=== PATIENT | female | born 1945 | race Caucasian/White ===

== ENCOUNTER 2017-02-14 05:07 | Emergency (ER) | payer MEDICARE ==
[~2017-02-14] VITALS: Ht 157.5 cm; Wt 73.0 kg
[~2017-02-14 05:07] MED LIST: ATOR20TA; DIAZ-56; GABA-529; GLIP10TA10; LAM2; METF500T3; RISP0.5T
[2017-02-14] MEDS ORDERED: SODIUM CHLORIDE 0.9% 250 ML IV ONE (06:11)
[2017-02-14 06:15] VITALS: BP 137/72
[2017-02-14 06:49] LABS: CHLORIDE 106 mEq/L (98-107); INDEX HEMOLYSI 1 (1-3); INDEX ICTERIC 1 (1-4); INDEX LIPEMIC 1 (1-3)
[2017-02-14 06:52] LABS: PROTHROMBIN TIME 10.5 sec
[2017-02-14 06:53] LABS: ANION GAP 10; BASOPHILS % 0.6 % (0.0-2.0); CALCIUM 8.6 mg/dL (8.5-10.1); CARBON DIOXIDE 29 mEq/L (21-32); EOSINOPHILS % 0.6 % (0.0-5.0); HEMATOCRIT. 40.1 % (36.0-48.0); HEMOGLOBIN. 13.2 g/dL (12.0-16.0); LYMPHOCYTES % 12.4 % (20.0-50.0); MEAN CORPUSCULAR HEMOGLOBIN 30.8 pg (28.0-32.0); MEAN CORPUSCULAR HGB CONC 32.8 g/dL (31.0-37.0); MEAN PLATELET VOLUME 7.9 fl (7.4-10.4); MONOCYTES % 5.3 % (2.0-8.0); NEUTROPHILS % 81.1 % (40.0-76.0); PLATELET 365 x1000/uL (130-400); RED BLOOD CELL COUNT 4.27 mill/uL (4.2-5.4); RED CELL DISTRIBUTION WIDTH 14.2 % (11.6-14.6); UREA NITROGEN BLOOD 14 mg/dL (7-21); WHITE BLOOD COUNT 15.7 x1000/uL (4.5-11.0)
[2017-02-14 06:55] LABS: eGFR > 60 mL/min (>60)
== END 2017-02-14 07:15 | disposition home or self-care (01) ==
LOC: ER 05:28
DX: R04.0 Epistaxis (principal); I10 Essential (primary) hypertension; E11.9 Type 2 diabetes mellitus without complications; F17.210 Nicotine dependence, cigarettes, uncomplicated; Z88.8 Allergy status to other drugs, medicaments and biological substances; Z79.899 Other long term (current) drug therapy
CPT/HCPCS: 36415; 80048; 85025; 85610; 85730; 86850; 86900; 99284; J7050

== ENCOUNTER 2017-04-07 14:23 | Emergency (ER) | payer MEDICARE ==
[~2017-04-07] VITALS: Ht 160 cm; Wt 73.0 kg
[2017-04-07] MEDS ORDERED: KETOROLAC 15MG/ML VIAL IV ONE (16:15)
[2017-04-07 18:56] VITALS: BP 138/63
== END 2017-04-07 18:58 | disposition home or self-care (01) ==
LOC: ER 17:02
DX: S29.011A Strain of muscle and tendon of front wall of thorax, initial encounter (principal); Y93.89 Activity, other specified; Y92.098 Other place in other non-institutional residence as the place of occurrence of the external cause; W01.0XXA Fall on same level from slipping, tripping and stumbling without subsequent striking against object, initial encounter; I10 Essential (primary) hypertension; J98.11 Atelectasis; R07.81 Pleurodynia; I51.7 Cardiomegaly; J44.9 Chronic obstructive pulmonary disease, unspecified; E78.00 Pure hypercholesterolemia, unspecified; F17.210 Nicotine dependence, cigarettes, uncomplicated; Z98.890 Other specified postprocedural states; Z71.6 Tobacco abuse counseling
CPT/HCPCS: 71010; 96374; 99284; J1885

== ENCOUNTER 2017-05-29 07:23 | Emergency (ER) | payer MEDICARE, MEDICAID ==
[~2017-05-29] VITALS: Ht 160 cm; Wt 70.0 kg
[~2017-05-29 07:23] MED LIST changes: -DIAZ-56; +DIAZ5TAB; -RISP0.5T; +RISP05
[2017-05-29] MEDS ORDERED: SODIUM CHLORIDE 0.9% 1,000 ML IV ONE (07:56)
[2017-05-29 08:11] LABS: BASOPHILS % 0.5 % (0.0-2.0); EOSINOPHILS % 0.6 % (0.0-5.0); HEMATOCRIT. 48.8 % (36.0-48.0); HEMOGLOBIN. 16.5 g/dL (12.0-16.0); LYMPHOCYTES % 16.5 % (20.0-50.0); MEAN CORPUSCULAR HEMOGLOBIN 31.6 pg (28.0-32.0); MEAN CORPUSCULAR VOLUME 93.3 fL (81.0-99.0); MEAN PLATELET VOLUME 7.9 fl (7.4-10.4); MONOCYTES % 4.4 % (2.0-8.0); PLATELET 283 x1000/uL (130-400); RED BLOOD CELL COUNT 5.23 mill/uL (4.2-5.4); RED CELL DISTRIBUTION WIDTH 13.9 % (11.6-14.6)
[2017-05-29 08:23] LABS: CARBON DIOXIDE 26 mEq/L (21-32); CHLORIDE 106 mEq/L (98-107)
[2017-05-29 08:26] LABS: BETA HYDROXYBUTYRATE 0.1 mMol/L (0.0-0.3)
[2017-05-29 09:25] VITALS: BP 127/83
== END 2017-05-29 09:30 | disposition home or self-care (01) ==
LOC: ER 07:48
DX: R53.1 Weakness (principal); M79.1 Myalgia; I10 Essential (primary) hypertension; E78.00 Pure hypercholesterolemia, unspecified; F32.9 Major depressive disorder, single episode, unspecified; E11.65 Type 2 diabetes mellitus with hyperglycemia; R56.9 Unspecified convulsions; F17.200 Nicotine dependence, unspecified, uncomplicated; Z88.0 Allergy status to penicillin
CPT/HCPCS: 36415; 80053; 82010; 82962; 85025; 93005; 96360; 99285; J7030

== ENCOUNTER 2017-06-22 09:55 | Emergency (ER) | payer MEDICARE ==
[~2017-06-22] VITALS: Ht 160 cm; Wt 75.0 kg
[~2017-06-22 09:55] MED LIST changes: +DIAZ-56; -DIAZ5TAB; +RISP0.5T; -RISP05
[2017-06-22 09:58] VITALS: BP_DIAS 95
[2017-06-22 12:37] VITALS: BP_SYST 119
== END 2017-06-22 13:14 | disposition left against medical advice (07) ==
LOC: ER 11:01
DX: F41.9 Anxiety disorder, unspecified (principal); Z53.21 Procedure and treatment not carried out due to patient leaving prior to being seen by health care provider
CPT/HCPCS: 82962; 99284

== ENCOUNTER 2018-01-26 12:02 | Emergency (ER) | payer MEDICARE ==
[~2018-01-26] VITALS: Ht 160 cm; Wt 61.0 kg
[~2018-01-26 12:02] MED LIST changes: -DIAZ-56; +DIAZ5TAB; -RISP0.5T; +RISP05
[2018-01-26 12:52] VITALS: BP 170/87
== END 2018-01-26 13:41 | disposition home or self-care (01) ==
LOC: ER 12:59
DX: Z76.0 Encounter for issue of repeat prescription (principal); F41.9 Anxiety disorder, unspecified; F32.9 Major depressive disorder, single episode, unspecified; E11.9 Type 2 diabetes mellitus without complications; I10 Essential (primary) hypertension; E78.00 Pure hypercholesterolemia, unspecified; Z79.84 Long term (current) use of oral hypoglycemic drugs; Z91.018 Allergy to other foods; Z88.0 Allergy status to penicillin; F17.200 Nicotine dependence, unspecified, uncomplicated
CPT/HCPCS: 99283

== ENCOUNTER 2018-01-30 05:00 | Inpatient (IN) | payer MEDICARE ==
[~2018-01-30] VITALS: Ht 162.6 cm; Wt 59.0 kg
[2018-01-30] MEDS ORDERED: LORAZEPAM 2MG/ML CPJ IV ONE (06:00)
[2018-01-30 06:46] LABS: BASOPHILS % 0.2 % (0.0-2.0); EOSINOPHILS % 0.4 % (0.0-5.0); HEMATOCRIT. 43.5 % (36.0-48.0); HEMOGLOBIN. 14.1 g/dL (12.0-16.0); LYMPHOCYTES % 8.2 % (20.0-50.0); MEAN CORPUSCULAR HEMOGLOBIN 31.3 pg (28.0-32.0); MEAN CORPUSCULAR VOLUME 96.2 fL (81.0-99.0); MEAN PLATELET VOLUME 7.9 fl (7.4-10.4); MONOCYTES % 4.5 % (2.0-8.0); NEUTROPHILS % 86.7 % (40.0-76.0); PLATELET 371 x1000/uL (130-400); RED BLOOD CELL COUNT 4.51 mill/uL (4.2-5.4); RED CELL DISTRIBUTION WIDTH 15.5 % (11.6-14.6)
[2018-01-30 06:49] LABS: CHLORIDE 99 mEq/L (98-107); ETHANOL BLOOD < 10 mg/dL
[2018-01-30] MEDS ORDERED: SODIUM CHLORIDE 0.9% 1,000 ML IV ONE (06:49)
[2018-01-30] MEDS: SODIUM CHLORIDE 0.9% 1,000 ML IV SCH ×2 (07:00→12:02)
[2018-01-30 07:18] LABS: CARBAMAZEPINE < 0.5 ug/mL (4-12); PHENOBARBITAL < 2.1 ug/mL (15.0-40.0)
[2018-01-30 07:48] LABS: CLARITY URINE CLEAR (CLEAR); COLOR URINE YELLOW (YELLOW); KETONES URINE NEGATIVE (NEGATIVE); LEUKOCYTE ESTERASE URINE NEGATIVE (NEGATIVE); NITRITE URINE NEGATIVE (NEGATIVE); OCCULT BLOOD URINE NEGATIVE (NEGATIVE); PH URINE 5.5 (4.5-8.0); PROTEIN URINE NEGATIVE (NEGATIVE); UROBILINOGEN URINE 0.2 E.U./dL (0.2-1.0)
[2018-01-30] MEDS ORDERED: LEVETIRACETAM 1000MG/100ML 100 ML IV ONE (08:15)
[2018-01-30 08:26] LABS: *AMPHETAMINES SCREEN URINE NEGATIVE (NEGATIVE); *BARBITURATES SCREEN URINE NEGATIVE (NEGATIVE); *BENZODIAZEPINES SCREEN URINE NEGATIVE (NEGATIVE); *COCAINE SCREEN URINE NEGATIVE (NEGATIVE); CANNABINOID URINE SCREEN NEGATIVE (NEGATIVE); METHADONE URINE SCREEN NEGATIVE (NEGATIVE); OPIATES URINE SCREEN NEGATIVE (NEGATIVE); PHENCYCLIDINE URINE SCREEN NEGATIVE (NEGATIVE)
[2018-01-30] MEDS ORDERED: IPRATROPIUM/ALBUTEROL 0.5-3(2.5)MG/3ML NEB INH PRN (11:00)
[2018-01-30] MEDS ORDERED: MAGNESIUM/ALUMINUM HYDROXIDE/SIMETHICONE 30ML UDC PO PRN (11:00)
[2018-01-30] MEDS ORDERED: NITROGLYCERIN 0.4MG TABLET SL SL PRN (11:00)
[2018-01-30] MEDS ORDERED: NA PHOS,M-B/NA PHOS,DI-BA ENEMA 118ML PR PRN (11:00)
[2018-01-30] MEDS ORDERED: GUAIFENESIN 200MG/10ML SUGAR FREE UDC PO PRN (11:00)
[2018-01-30] MEDS ORDERED: DOCUSATE SODIUM 100MG CAPSULE PO PRN (11:00)
[2018-01-30] MEDS ORDERED: ACETAMINOPHEN 325MG TABLET PO PRN (11:00)
[2018-01-30] MEDS ORDERED: DEXTROSE 50% WATER 50ML SYRINGE IV PRN (11:00)
[2018-01-30] MEDS ORDERED: ZOLPIDEM TARTRATE 5MG TABLET PO PRN (11:00)
[2018-01-30] MEDS ORDERED: TRAMADOL 50MG TABLET PO PRN (11:00)
[2018-01-30] MEDS ORDERED: ONDANSETRON HCL 4MG/2ML VIAL IV PRN (11:00)
[2018-01-30 11:12] VITALS: BP 101/47
[2018-01-30 11:30] VITALS: BP 101/47
[2018-01-30] MEDS: ENOXAPARIN 40MG/0.4ML SYR SUBCUT SCH (12:00)
[2018-01-30] MEDS: INSULIN LISPRO 100 UNITS/ML SUBCUT SCH ×3 (12:36→21:00)
[2018-01-30] MEDS: BLOOD SUGAR DIAGNOSTIC STRIP TEST SCH ×3 (12:36→21:51)
[2018-01-30 13:06] LABS: T4 FREE 1.67 ng/dL (0.76-1.46)
[2018-01-30] MEDS: LEVOFLOXACIN 500MG PREMIX 100 ML IV SCH (13:13)
[2018-01-30 16:18] VITALS: BP 114/49
[2018-01-30] MEDS: CARBAMAZEPINE 200MG TABLET PO SCH (17:43)
[2018-01-30] MEDS ORDERED: KCL 20MEQ/100ML PREMIX 100 ML IV NR (19:30)
[2018-01-30 19:43] LABS: AMMONIA 28 uMol/L (<32)
[2018-01-30 19:54] LABS: T4 FREE 1.36 ng/dL (0.76-1.46)
[2018-01-30 20:22] LABS: FOLIC ACID (FOLATE) SERUM 19.9 ng/mL (>5.38)
[2018-01-30 20:24] VITALS: BP 119/97
[2018-01-30] MEDS ORDERED: LEVETIRACETAM 500MG/5ML CUP PO SCH (21:00)
[2018-01-30] MEDS: DEXT 5%/0.9% NACL KCL 20MEQ/L 1,000 ML IV SCH (23:02)
[2018-01-31 00:36] VITALS: BP 128/46
[2018-01-31 04:43] VITALS: BP 99/68
[2018-01-31] MEDS: LORAZEPAM 0.5MG TABLET PO PRN ×3 (04:59→17:01)
[2018-01-31] MEDS: DIPHENHYDRAMINE 50MG/ML VIAL IV PRN (05:06)
[2018-01-31] MEDS: CARBAMAZEPINE 200MG TABLET PO SCH ×2 (05:07→17:24)
[2018-01-31] MEDS: BLOOD SUGAR DIAGNOSTIC STRIP TEST SCH ×4 (06:30→21:00)
[2018-01-31] MEDS: INSULIN LISPRO 100 UNITS/ML SUBCUT SCH ×4 (07:50→21:00)
[2018-01-31 08:10] VITALS: BP 163/50
[2018-01-31] MEDS: PANTOPRAZOLE SODIUM 40 MG/VIAL IV SCH (09:00)
[2018-01-31] MEDS: ASPIRIN 325MG EC TABLET PO SCH (09:17)
[2018-01-31] MEDS: ENOXAPARIN 40MG/0.4ML SYR SUBCUT SCH (09:17)
[2018-01-31] MEDS: LEVOFLOXACIN 500MG PREMIX 100 ML IV SCH (11:00)
[2018-01-31] MEDS: DEXT 5%/0.9% NACL KCL 20MEQ/L 1,000 ML IV SCH (12:20)
[2018-01-31 13:39] LABS: BASOPHILS % 0.5 % (0.0-2.0); EOSINOPHILS % 1.2 % (0.0-5.0); HEMATOCRIT. 39.5 % (36.0-48.0); HEMOGLOBIN. 13.2 g/dL (12.0-16.0); LYMPHOCYTES % 12.1 % (20.0-50.0); MEAN CORPUSCULAR HEMOGLOBIN 31.7 pg (28.0-32.0); MEAN CORPUSCULAR VOLUME 95.4 fL (81.0-99.0); MONOCYTES % 6.5 % (2.0-8.0); NEUTROPHILS % 79.7 % (40.0-76.0); PLATELET 357 x1000/uL (130-400); RED BLOOD CELL COUNT 4.15 mill/uL (4.2-5.4); RED CELL DISTRIBUTION WIDTH 15.1 % (11.6-14.6)
[2018-01-31 14:02] LABS: CHLORIDE 103 mEq/L (98-107)
[2018-01-31 16:40] VITALS: BP 171/65
[2018-01-31] MEDS: SODIUM CHLORIDE 0.9% 1,000 ML IV SCH ×2 (17:00→17:02)
[2018-01-31 20:00] VITALS: BP 181/84
[2018-02-01] VITALS (7 sets, daily range): BP systolic 116–156; BP diastolic 46–94
[2018-02-01] MEDS: DEXT 5%/0.9% NACL KCL 20MEQ/L 1,000 ML IV SCH ×2 (05:39→11:33)
[2018-02-01] MEDS: BLOOD SUGAR DIAGNOSTIC STRIP TEST SCH ×4 (07:20→20:10)
[2018-02-01] MEDS: INSULIN LISPRO 100 UNITS/ML SUBCUT SCH ×4 (07:50→20:10)
[2018-02-01] MEDS: LORAZEPAM 0.5MG TABLET PO PRN ×2 (11:31→18:13)
[2018-02-01] MEDS: ASPIRIN 325MG EC TABLET PO SCH (11:32)
[2018-02-01] MEDS: CARBAMAZEPINE 200MG TABLET PO SCH ×2 (11:32→22:34)
[2018-02-01] MEDS: LEVOFLOXACIN 500MG PREMIX 100 ML IV SCH (11:32)
[2018-02-01] MEDS: ENOXAPARIN 40MG/0.4ML SYR SUBCUT SCH (11:33)
[2018-02-01] MEDS: PANTOPRAZOLE SODIUM 40 MG/VIAL IV SCH (11:47)
[2018-02-02 04:00] VITALS: BP 163/56
[2018-02-02] MEDS: DEXT 5%/0.9% NACL KCL 20MEQ/L 1,000 ML IV SCH ×2 (04:20→17:33)
[2018-02-02] MEDS: BLOOD SUGAR DIAGNOSTIC STRIP TEST SCH ×4 (07:20→20:09)
[2018-02-02 07:27] VITALS: BP 121/40
[2018-02-02] MEDS: INSULIN LISPRO 100 UNITS/ML SUBCUT SCH ×4 (07:50→20:15)
[2018-02-02] MEDS: ENOXAPARIN 40MG/0.4ML SYR SUBCUT SCH (09:01)
[2018-02-02] MEDS: CARBAMAZEPINE 200MG TABLET PO SCH ×2 (09:01→20:15)
[2018-02-02] MEDS: FAMOTIDINE 20MG/2ML VIAL IV SCH (09:01)
[2018-02-02] MEDS: LORAZEPAM 0.5MG TABLET PO PRN (09:01)
[2018-02-02] MEDS: DIPHENHYDRAMINE 50MG/ML VIAL IV PRN (09:02)
[2018-02-02] MEDS: ASPIRIN 325MG EC TABLET PO SCH (09:03)
[2018-02-02 11:20] VITALS: BP 141/63
[2018-02-02] MEDS: LEVOFLOXACIN 500MG PREMIX 100 ML IV SCH (12:58)
[2018-02-02] MEDS ORDERED: IOHEXOL-350 100 ML BOTTLE ONE (16:47)
[2018-02-02 20:00] VITALS: BP 120/50
[2018-02-03] VITALS (7 sets, daily range): BP systolic 120–160; BP diastolic 37–58
[2018-02-03] MEDS: DEXT 5%/0.9% NACL KCL 20MEQ/L 1,000 ML IV SCH ×2 (06:04→19:44)
[2018-02-03] MEDS: ASPIRIN 325MG EC TABLET PO SCH (09:00)
[2018-02-03] MEDS: FAMOTIDINE 20MG/2ML VIAL IV SCH (09:00)
[2018-02-03] MEDS: ENOXAPARIN 40MG/0.4ML SYR SUBCUT SCH (09:00)
[2018-02-03] MEDS: CARBAMAZEPINE 200MG TABLET PO SCH ×2 (09:00→20:28)
[2018-02-03] MEDS: BLOOD SUGAR DIAGNOSTIC STRIP TEST SCH ×4 (09:56→20:28)
[2018-02-03] MEDS: INSULIN LISPRO 100 UNITS/ML SUBCUT SCH ×4 (10:32→20:30)
[2018-02-03] MEDS: LORAZEPAM 0.5MG TABLET PO PRN (14:35)
[2018-02-03] MEDS: LEVOFLOXACIN 500MG PREMIX 100 ML IV SCH (15:42)
[2018-02-04] VITALS (64 sets, daily range): BP systolic 100–182; BP diastolic 35–99
[2018-02-04] MEDS ORDERED: THROMBIN (BOVINE) 5000 UNITS/VIAL TOP ONE (07:32)
[2018-02-04] MEDS ORDERED: GELATIN SPONGE,ABSORBABLE SZ 100 ONE (07:32)
[2018-02-04] MEDS ORDERED: BACITRACIN ZINC 15GM TUBE TOP ONE (07:32)
[2018-02-04] MEDS ORDERED: LIDOCAINE HCL 1% 20ML VIAL (Pyxis) INJ ONE (07:33)
[2018-02-04] MEDS ORDERED: BUPIVACAINE HCL/PF 0.5% (5MG/ML) 10ML ONE (07:33)
[2018-02-04] MEDS ORDERED: HEPARIN SODIUM 1,000 UNIT/1ML VIAL IV ONE (07:33)
[2018-02-04] MEDS ORDERED: NORMAL SALINE 0.9% 10 ML SYR ONE (07:33)
[2018-02-04] MEDS ORDERED: BACITRACIN 50,000 UNITS/VIAL ONE ×2 (07:34→07:35)
[2018-02-04] MEDS: INSULIN LISPRO 100 UNITS/ML SUBCUT SCH ×4 (07:50→20:58)
[2018-02-04] MEDS ORDERED: PROPOFOL 200MG/20ML VIAL IV ONE (07:55)
[2018-02-04] MEDS ORDERED: FENTANYL CITRATE/PF 50MCG/ML 2ML VIAL ONE (07:55)
[2018-02-04] MEDS: BLOOD SUGAR DIAGNOSTIC STRIP TEST SCH ×4 (07:55→20:59)
[2018-02-04] MEDS ORDERED: MIDAZOLAM HCL 2 MG/2 ML VIAL ONE (07:55)
[2018-02-04] MEDS ORDERED: SUCCINYLCHOLINE CHLORIDE 200MG/10ML VIAL IV ONE ×2 (07:56→09:12)
[2018-02-04] MEDS ORDERED: LIDOCAINE HCL/PF 1% 10 MG/ML 5ML VIAL ONE (07:56)
[2018-02-04] MEDS ORDERED: NICARDIPINE 100 MG in SODIUM CHLORIDE 0.9% 60 ML IV PRN (08:15)
[2018-02-04] MEDS ORDERED: HYDROMORPHONE HCL/PF 2MG/ML CPJ IV PRN ×2 (08:15→09:30)
[2018-02-04] MEDS ORDERED: ATROPINE SULFATE 0.4MG/ML VIAL ONE (08:51)
[2018-02-04] MEDS ORDERED: HEPARIN 1000 UNITS/ML 10ML ONE (08:59)
[2018-02-04] MEDS: ENOXAPARIN 40MG/0.4ML SYR SUBCUT SCH (09:00)
[2018-02-04] MEDS: ASPIRIN 325MG EC TABLET PO SCH (09:00)
[2018-02-04] MEDS: FAMOTIDINE 20MG/2ML VIAL IV SCH (09:00)
[2018-02-04] MEDS: CARBAMAZEPINE 200MG TABLET PO SCH ×2 (09:00→21:16)
[2018-02-04] MEDS: DEXT 5%/0.9% NACL KCL 20MEQ/L 1,000 ML IV SCH ×2 (09:02→17:20)
[2018-02-04] MEDS ORDERED: EPHEDRINE SULFATE 50MG/ML VIAL ONE (09:11)
[2018-02-04] MEDS ORDERED: VECURONIUM BROMIDE 10 MG/VIAL IV ONE (09:12)
[2018-02-04] MEDS ORDERED: ONDANSETRON HCL 4MG/2ML VIAL ONE (09:12)
[2018-02-04] MEDS ORDERED: NEOSTIGMINE METHYLSULFATE 1MG/ML 10 ML VIAL ONE (09:13)
[2018-02-04] MEDS ORDERED: PROTAMINE SULFATE 10MG/ML VIAL 5ML IV ONE (09:13)
[2018-02-04] MEDS ORDERED: CEFAZOLIN SODIUM 1000MG/VIAL ONE (09:13)
[2018-02-04] MEDS ORDERED: GLYCOPYRROLATE 0.2 MG/ML 2ML VIAL ONE (09:13)
[2018-02-04] MEDS ORDERED: ONDANSETRON HCL 4MG/2ML VIAL IV PRN (09:30)
[2018-02-04] MEDS ORDERED: MEPERIDINE HCL/PF 25MG/ML CPJ IV PRN (09:30)
[2018-02-04] MEDS ORDERED: LABETALOL HCL 5MG/ML VIAL 20ML IV PRN (09:30)
[2018-02-04] MEDS: NICARDIPINE 50 MG in SODIUM CHLORIDE 0.9% 230 ML IV PRN ×2 (10:22→23:13)
[2018-02-04] MEDS: LEVOFLOXACIN 500MG TABLET PO SCH (11:57)
[2018-02-04] MEDS: AMLODIPINE 5MG TABLET PO SCH (13:00)
[2018-02-04] MEDS: HYDROMORPHONE HCL/PF 2MG/ML CPJ IV PRN ×2 (15:12→21:22)
[2018-02-04] MEDS: DIPHENHYDRAMINE 50MG/ML VIAL IV PRN (18:02)
[2018-02-05] VITALS (56 sets, daily range): BP systolic 67–208; BP diastolic 35–110
[2018-02-05] MEDS: HYDROMORPHONE HCL/PF 2MG/ML CPJ IV PRN (02:22)
[2018-02-05] MEDS: NICARDIPINE 50 MG in SODIUM CHLORIDE 0.9% 230 ML IV PRN (07:24)
[2018-02-05] MEDS: BLOOD SUGAR DIAGNOSTIC STRIP TEST SCH ×4 (08:09→21:17)
[2018-02-05] MEDS: DIPHENHYDRAMINE 50MG/ML VIAL IV PRN (08:19)
[2018-02-05] MEDS: FAMOTIDINE 20MG/2ML VIAL IV SCH (08:19)
[2018-02-05] MEDS: ENOXAPARIN 40MG/0.4ML SYR SUBCUT SCH (08:19)
[2018-02-05] MEDS: ASPIRIN 325MG EC TABLET PO SCH ×2 (08:20→09:25)
[2018-02-05] MEDS: AMLODIPINE 5MG TABLET PO SCH (08:20)
[2018-02-05] MEDS: CARBAMAZEPINE 200MG TABLET PO SCH ×2 (08:20→21:16)
[2018-02-05] MEDS: INSULIN LISPRO 100 UNITS/ML SUBCUT SCH ×4 (08:21→21:00)
[2018-02-05 09:09] LABS: BASOPHILS % 0.5 % (0.0-2.0); EOSINOPHILS % 1.4 % (0.0-5.0); HEMATOCRIT. 35.9 % (36.0-48.0); HEMOGLOBIN. 11.8 g/dL (12.0-16.0); LYMPHOCYTES % 9.6 % (20.0-50.0); MEAN CORPUSCULAR HEMOGLOBIN 31.7 pg (28.0-32.0); MEAN CORPUSCULAR VOLUME 96.6 fL (81.0-99.0); MEAN PLATELET VOLUME 7.9 fl (7.4-10.4); MONOCYTES % 7.7 % (2.0-8.0); NEUTROPHILS % 80.8 % (40.0-76.0); PLATELET 341 x1000/uL (130-400); RED BLOOD CELL COUNT 3.72 mill/uL (4.2-5.4); RED CELL DISTRIBUTION WIDTH 14.7 % (11.6-14.6)
[2018-02-05 09:41] LABS: CHLORIDE 104 mEq/L (98-107)
[2018-02-05 09:43] LABS: PHOSPHORUS 2.9 mg/dL (2.5-4.9)
[2018-02-05] MEDS ORDERED: HYDRALAZINE 20MG/ML VIAL IV SCH (11:45)
[2018-02-05] MEDS ORDERED: AMLODIPINE 5MG TABLET PO NR (11:45)
[2018-02-05] MEDS: LEVOFLOXACIN 500MG TABLET PO SCH (12:16)
[2018-02-05] MEDS: ALPRAZOLAM 0.25 MG TABLET PO PRN ×2 (12:19→18:08)
[2018-02-05] MEDS: HYDRALAZINE HCL 50MG TABLET PO SCH ×2 (13:34→21:17)
[2018-02-05] MEDS ORDERED: MAGNESIUM 1 G PREMIX 100 ML IV NR (14:00)
[2018-02-05] MEDS ORDERED: MAGNESIUM 2 G PREMIX 50 ML IV NR (15:00)
[2018-02-05] MEDS: CLONIDINE 0.1MG TABLET PO PRN (16:52)
[2018-02-06] VITALS (7 sets, daily range): BP systolic 131–183; BP diastolic 59–82
[2018-02-06] MEDS: DIPHENHYDRAMINE 50MG/ML VIAL IV PRN (00:47)
[2018-02-06] MEDS: HYDRALAZINE HCL 50MG TABLET PO SCH ×2 (06:14→14:00)
[2018-02-06] MEDS: ALPRAZOLAM 0.25 MG TABLET PO PRN (06:43)
[2018-02-06] MEDS: BLOOD SUGAR DIAGNOSTIC STRIP TEST SCH ×2 (07:44→13:04)
[2018-02-06] MEDS: FAMOTIDINE 20MG/2ML VIAL IV SCH (08:32)
[2018-02-06] MEDS: CLONIDINE 0.1MG TABLET PO PRN ×2 (08:32→14:00)
[2018-02-06] MEDS: INSULIN LISPRO 100 UNITS/ML SUBCUT SCH ×2 (08:33→13:04)
[2018-02-06] MEDS: CARBAMAZEPINE 200MG TABLET PO SCH (08:33)
[2018-02-06] MEDS: ASPIRIN 325MG EC TABLET PO SCH (08:33)
[2018-02-06] MEDS ORDERED: AMLODIPINE 10MG TABLET PO SCH (09:00)
[2018-02-06] MEDS: LEVOFLOXACIN 500MG TABLET PO SCH (10:33)
== END 2018-02-06 16:34 | disposition home or self-care (01) | DRG 37 ==
LOC: ER 05:19 → 6WST 08:35 → ENRESERV 10:00 → 6WST 02-02 07:35 → CVICU 02-04 10:06 → 7WST 02-05 14:00
PROVIDERS: ADMIT Internal Medicine; ATTEND Internal Medicine
PROC: 03CJ0ZZ Extirpation of Matter from Left Common Carotid Artery, Open Approach (ICD-10-PCS; 2018-02-04)
PROC: 03CN0ZZ Extirpation of Matter from Left External Carotid Artery, Open Approach (ICD-10-PCS; 2018-02-04)
PROC: 03CL0ZZ Extirpation of Matter from Left Internal Carotid Artery, Open Approach (ICD-10-PCS; principal; 2018-02-04 08:00)
DX: I65.22 Occlusion and stenosis of left carotid artery (principal); G92 Toxic encephalopathy; E11.9 Type 2 diabetes mellitus without complications; G40.909 Epilepsy, unspecified, not intractable, without status epilepticus; J44.9 Chronic obstructive pulmonary disease, unspecified; E87.6 Hypokalemia; I10 Essential (primary) hypertension; F31.9 Bipolar disorder, unspecified; E78.00 Pure hypercholesterolemia, unspecified; Z79.4 Long term (current) use of insulin; Z88.0 Allergy status to penicillin; Z79.899 Other long term (current) drug therapy
CPT/HCPCS: 36415; 70450; 70498; 70551; 71045; 80048; 80053; 80061; 80156; 80165; 80184; 80185; 80305; 81003; 82140; 82607; 82746; 82962; 83036; 83735; 84100; 84439; 84443; 84481; 85025; 86850; 86900; 87086; 88304; 88311; 92610; 93306; 93880; 93970; 96361; 96374; 96375; 97116; 97162; 97166; 99285; A4216; C9113; G0482; J0171; J0330; J0461; J0690; J1170; J1200; J1644; J1650; J1815; J1953; J1956; J2060; J2250; J2405; J2704; J2710; J2720; J3010; J3475; J3480; J3490; J7030; J7050; Q9967